=== PATIENT | male | born 1985 | race Caucasian/White ===

== ENCOUNTER 2017-06-03 06:04 | Emergency (ER) | payer SELFPAY ==
[~2017-06-03] VITALS: Ht 188 cm; Wt 71.0 kg
[2017-06-03 06:10] VITALS: Ht 188 cm; Wt 71.0 kg
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
== END 2017-06-03 06:39 | disposition home or self-care (01) ==
LOC: E/R 06:04
DX: F15.90 Other stimulant use, unspecified, uncomplicated (principal); F17.210 Nicotine dependence, cigarettes, uncomplicated
CPT/HCPCS: 99282